=== PATIENT | female | born 2000 | race Caucasian/White ===

== ENCOUNTER 2022-01-09 09:59 | Emergency (ER) | payer BC ==
[~2022-01-09] VITALS: Ht 160 cm; Wt 59.0 kg
[2022-01-09 09:59] VITALS: BP 138/89
--- NOTE | 2022-01-09 09:59 | NUR ---
ARRIVAL PATIENT ARRIVED TO ED4 AMBULATORY, C/O LEFT SIDED ABDOMEN PAIN AND NAUSEA FOR THE PAST 2 DAYS, PAIN COMES AND GOES, NO PAIN WHILE SITTING, CAME TO THE ED FOR EVAL, VITALS TAKEN AND DOCTOR NOTIFIED OF PATIENT'S ARRIVAL.
[2022-01-09] MEDS ORDERED: LIDOCAINE HCL VISCOUS MM STA (10:29)
[2022-01-09] MEDS ORDERED: MYLANTA PO STA (10:29)
[2022-01-09] MEDS ORDERED: NS 1000ML 1,000 ML STA (10:29)
[2022-01-09] MEDS ORDERED: ZOFRAN IV PRN (10:30)
[2022-01-09] MEDS ORDERED: LIDOCAINE HCL VISCOUS ONE (10:34)
[2022-01-09] MEDS ORDERED: ZOFRAN ONE (10:34)
[2022-01-09] MEDS ORDERED: MYLANTA ONE (10:34)
[2022-01-09] MEDS ORDERED: NS 1000ML 1,000 ML ONE (10:34)
[2022-01-09 10:40] LABS: BILIRUBIN,URINE 1+ (NEGATIVE); UROBILINOGEN,URINE 0.2 E.U./dL (0.2)
[2022-01-09 10:42] LABS: BASOPHIL % 0.4 % (0.0-0.2); EOSINOPHIL % 0.4 % (0.0-5.0); LYMPHOCYTES # 0.78 10^3/uL1 (1.0-4.8); LYMPHOCYTES % 11.7 % (24.0-44.0); MEAN CORP HGB 21.8 pg (26-34); MONOCYTES # 0.6 10^3/uL (0.3-0.8); MONOCYTES % 8.8 % (5.0-12.0); NEUTROPHIL # 5.3 10^3/uL (1.8-7.7); NEUTROPHILS % 78.6 % (41.0-85.0); PLATELET COUNT 292 10^3/uL (150-400); RED CELL DISTRIBUTION WIDTH 17.8 % (11.5-14.5)
[2022-01-09 10:56] LABS: CARBON DIOXIDE 23.8 mmol/L (20.0-32)
[2022-01-09 11:16] VITALS: BP 130/73
[2022-01-09] MEDS ORDERED: DILAUDID IV STA (11:21)
[2022-01-09] MEDS ORDERED: DILAUDID ONE (11:26)
[2022-01-09 12:05] VITALS: BP 140/72
--- NOTE | 2022-01-09 12:12 | DIREP ---
PROCEDURE:CT ABDOMEN/PELVIS W/ CONTRAST COMPARISON:None. INDICATIONS:pain, n/v TECHNIQUE:Axial images were created through the abdomen and pelvis with non-ionic intravenous contrast material. No oral contrast was administered. Sagittal and coronal reconstructions were performed from source images. FINDINGS: LUNG BASES:Normal. No visible pulmonary or pleural disease. LIVER:Normal. No significant liver lesions are identified. BILIARY:Normal. No visible dilatation or calcification. PANCREAS:Normal. No lesion, fluid collection, ductal dilatation, or atrophy. SPLEEN:Normal. No enlargement or focal lesion. ADRENALS:Normal. No mass or enlargement. URINARY TRACT:Normal. No focal lesions or hydronephrosis. AORTA/VASCULAR:Normal. No aneurysm. RETROPERITONEUM:Normal. No mass or adenopathy. BOWEL/MESENTERY:The appendix is visualized and appears normal. There is no intestinal obstruction, free fluid, free air or mesenteric inflammatory changes. ABDOMINAL WALL:Normal. No mass or hernia. PELVIC ORGANS:Normal. No visible mass. Pelvic organs appropriate for patient age. BONES:Normal for age. No bony lesion or acute fracture. OTHER:Negative. CONCLUSION:Normal examination. Dictated by: Valentin Rust MD on 01/09/2022 at 12:07 PM
--- NOTE | 2022-01-09 12:31 | NUR ---
Note camille in EDM - 01/09/22 at 1249 by JAKOB ARRIVAL PATIENT ARRIVED TO ED6 AMBULATORY WITH FAMILY, C/O HEADACHE,FEVER,FREQUENT URINATION AND ACHINESS FOR THE PAST 3 DAYS, DID TAKE TYLENOL AT 0630 THIS MORNING, BECAME CONCERNED AND DECIDED TO COME TO THE ED FOR EVAL,VITAL SIGNS TAKEN AND DOCTOR NOTIFIED OF PATIENT'S ARRIVAL.
--- NOTE | 2022-01-09 12:44 | ER.PDOC ---
General Chief Complaint: Abdomen Pain Stated Complaint: ABD PAIN,NAUSEA Time seen by MD: 10:15 Source: patient Exam Limitations: no limitations History of Present Illness Initial Comments 21-year-old female with 2 days of abdominal pain. It is epigastric. Sharp. No radiation. No fever or chills. No urinary symptoms Allergies: Coded Allergies: No Known Allergies (Unverified , 01/09/22) Vital Signs First Vital Signs Date Time Temp Pulse Resp B/P (MAP) Pulse Ox O2 Delivery O2 Flow Rate FiO2 01/09/22 09:59 98.4 80 18 01/09/22 09:59 99 01/09/22 09:59 138/89 (105) Room Air* 0 21 Last Vital Signs Date Time Temp Pulse Resp B/P (MAP) Pulse Ox O2 Delivery O2 Flow Rate FiO2 01/09/22 12:05 98.4 66 18 140/72 (94) 99 Room Air* 0 21 Past Medical History Medical History: no pertinent history Surgical History: no surgical history Social History Alcohol Use: none Drug Use: none All Other Systems: Reviewed and Negative Physical Exam General Appearance: Mild Distress HEENT: Normal ENT Inspection Neck: Normal Inspection Respiratory: lungs clear, no respiratory distress Cardiovascular: Normal Peripheral Pulses, Regular Rate, Rhythm, No Edema Gastrointestinal: Soft, Other (Minimal generalized tenderness no guarding or rebound) Back: Normal Inspection Extremities: Normal Inspection, No Pedal Edema Neurologic/Psychiatric: Alert, Oriented x 3 Skin: Normal Color Lymphatic: No Adenopathy Results/Orders Results/Orders Orders - СВЕТЛАНА WINTERS MD Cbc With Auto Diff (01/09/22 10:29) Comprehensive Metabolic Panel (01/09/22 10:29) Lipase (01/09/22 10:29) Hcg Qualitative Serum (01/09/22 10:29) Urinalysis (01/09/22 10:29) 0.9 % Sodium Chloride (Ns 1000ml) (01/09/22 10:29) Ondansetron Hcl/Pf (Zofran) (01/09/22 10:30) Mag Hydrox/Aluminum Hyd/Simeth (Mylanta) (01/09/22 10:29) Lidocaine Hcl (Lidocaine Hcl Viscous) (01/09/22 10:29) 0.9 % Sodium Chloride (Ns 1000ml) (01/09/22 10:34) Ondansetron Hcl/Pf (Zofran) (01/09/22 10:34) Lidocaine Hcl (Lidocaine Hcl Viscous) (01/09/22 10:34) Mag Hydrox/Aluminum Hyd/Simeth (Mylanta) (01/09/22 10:34) Urine Culture (01/09/22 09:59) Hydromorphone Hcl (Dilaudid) (01/09/22 11:21) Ct Abd/Pel With Iv Contrast (01/09/22 11:21) Hydromorphone Hcl (Dilaudid) (01/09/22 11:26) Vital Signs Date Time Temp Pulse Resp B/P (MAP) Pulse Ox O2 Delivery O2 Flow Rate FiO2 01/09/22 12:05 98.4 66 18 140/72 (94) 99 Room Air* 0 21 01/09/22 11:16 98.4 70 18 130/73 (92) 99 Room Air* 0 01/09/22 09:59 98.4 80 18 138/89 (105) 99 Room Air* 0 01/09/22 09:59 98.4 80 18 99 01/09/22 09:59 98.4 80 18 Administered Medications Medications (Trade) Dose Ordered Sig/Ramesh Route PRN Reason Start Time Stop Time Status Last Admin Dose Admin Hydromorphone HCl (Dilaudid) 0.5 mg OT STAT IV 01/09/22 11:21 01/09/22 11:23 DC 01/09/22 11:29 0.5 MG Lidocaine HCl (Lidocaine HCl Viscous) 15 ml STAT STAT MM 01/09/22 10:29 01/09/22 10:30 DC 01/09/22 10:37 15 ML Ondansetron HCl (Zofran) 4 mg Q4H PRN IV NAUSEA / VOMITING 01/09/22 10:30 02/08/22 10:29 01/09/22 10:36 4 MG Sodium Chloride 1,000 ml @ 0 mls/hr Q0M STAT IV 01/09/22 10:29 01/09/22 10:30 DC 01/09/22 10:36 1,200 MLS/HR Laboratory Tests Test 01/09/22 10:30 01/09/22 10:35 Urine Collection Type UNKNOWN Urine Color YELLOW Urine Appearance CLOUDY Urine Bilirubin 1+ (NEGATIVE) H Urine Ketones 1+ (NEGATIVE) H Urine Specific Hye >=1.030 (1.005-1.030) Urine pH 5.5 (4.5-8.0) Urine Protein 1+ (NEGATIVE) H Urine Urobilinogen 0.2 E.U./dL (0.2) Urine Nitrate NEGATIVE (NEGATIVE) Urine Leukocyte Esterase TRACE (NEGATIVE) H Urine Glucose (Auto)(UA) NEGATIVE (NEGATIVE) Urine Blood TRACE-LYSED (NEGATIVE) H Urine RBC 2-5 RBC/HPF (NONE SEEN) Urine WBC 2-5 WBC/HPF (0-2) Urine Squamous Epithelial Cells MODERATE (<=FEW) Urine Bacteria FEW (NONE SEEN) H White Blood Count 6.7 10^3/uL (4.5-11.0) Red Blood Count 5.23 10^6/uL (4.00-5.20) H Hemoglobin 11.4 g/dL (12.0-15.0) L Hematocrit 37.3 % (36.0-46.0) Mean Corpuscular Volume 71.3 fL (78-100) L Mean Corpuscular Hemoglobin 21.8 pg (26-34) L Mean Corpuscular Hemoglobin Concent 30.6 g/dL (33-36.5) L Red Cell Distribution Width 17.8 % (11.5-14.5) H Platelet Count 292 10^3/uL (150-400) Mean Platelet Volume 10.5 fL (7.8-11.0) Neutrophils (%) (Auto) 78.6 % (41.0-85.0) Lymphocytes (%) (Auto) 11.7 % (24.0-44.0) L Monocytes (%) (Auto) 8.8 % (5.0-12.0) Neutrophils # (Auto) 5.3 10^3/uL (1.8-7.7) Lymphocytes # (Auto) 0.78 10^3/uL1 (1.0-4.8) L Monocytes # (Auto) 0.6 10^3/uL (0.3-0.8) Absolute Immature Granulocyte (auto 0.01 10^3 u/L (0-2) Absolute Eosinophils (auto) 0.0 10^3/uL (0.0-0.2) Immature Granulocytes % 0.10 % (0.00-0.50) Eosinophils % 0.4 % (0.0-5.0) Basophils % 0.4 % (0.0-0.2) H Basophils # 0.0 10^3/uL (0.0-0.1) Sodium Level 138 mmol/L (132-145) Potassium Level 3.8 mmol/L (3.6-5.2) Chloride Level 103.0 mmol/L (96-109) Carbon Dioxide Level 23.8 mmol/L (20.0-32) Anion Gap 15.0 Blood Urea Nitrogen 17 mg/dL (7-18) Creatinine 1.12 mg/dL (0.59-1.40) Estimated GFR () 74.3 (>/=60) Est GFR (CKD-EPI)(Non-Afr [place]) 61.4 (>/=60) BUN/Creatinine Ratio 15.0 Glucose Level 96 mg/dL (70-110) Calcium Level 8.8 mg/dL (8.4-10.5) Total Bilirubin 0.5 mg/dL (0.2-1.0) Aspartate Amino Transferase (AST) 10 U/L (0-35) Alanine Aminotransferase (ALT) 19 U/L (12-78) Alkaline Phosphatase 79 U/L (50-136) Total Protein 7.6 g/dL (6.4-8.2) Albumin 3.8 g/dL (3.4-5.0) Globulin 3.8 Albumin/Globulin Ratio 1.000 Lipase 39 U/L (114-286) L Serum HCG, Qualitative NEGATIVE (NEGATIVE) ER DEPART Departure Time of Disposition: 12:44 Disposition: 01 HOME / SELF CARE / HOMELESS Impression: Primary Impression: Gastritis Condition: Improved Referrals: PCP,UNKNOWN (PCP) PRIMARY CARE PROVIDER Duration or Time Spent with Pa: СВЕТЛАНА Ravi MD Jan 09, 2022 12:44
[2022-01-09 12:46] VITALS: BP 129/69
== END 2022-01-09 12:51 | disposition home or self-care (01) ==
LOC: ER 09:59
DX: K29.70 Gastritis, unspecified, without bleeding (principal)
CPT/HCPCS: 74177; 99284; 96374; 96361; 96375; 87086; 80053; 85025; 36415; 81001; 83690; 84703; J7030; J1170; J3490; J2405; Q9965

== ENCOUNTER → 2022-01-10 | Outpatient (CLI) | payer BC | END | disposition home or self-care (01) | LOC: NPLAB 12:03 | PROVIDERS: ATTEND Nurse Practitioner Family | DX: R50.9 Fever, unspecified (principal); R11.10 Vomiting, unspecified; Z20.822 Contact with and (suspected) exposure to COVID-19 | CPT/HCPCS: 87426 ==